=== PATIENT | male | born 1975 | race Caucasian/White ===

== ENCOUNTER 2017-04-22 10:07 | Emergency (ER) | payer OTHER, MEDICAID ==
[~2017-04-22] VITALS: Ht 170.2 cm; Wt 117.9 kg
[2017-04-22 10:07] VITALS: BP_SYST 126
[~2017-04-22 10:07] MED LIST: METF-305 PO
[2017-04-22] MEDS ORDERED: BACITRACIN 1 GM OINT TP ONE (10:45)
[2017-04-22] MEDS ORDERED: LIDOCAINE 1% 10 MG/ML, 20 ML MDV IJ ONE (10:45)
[2017-04-22 11:08] LABS: BASOPHILS # (AUTO) 0.1 K/uL (0.0-0.2); BASOPHILS % (AUTO) 0.7 % (0.0-2.0); EOSINOPHILS # (AUTO) 0.4 K/uL (0.0-0.4); EOSINOPHILS % (AUTO) 3.5 % (0.0-4.0); HEMATOCRIT 48.1 % (36-54); HEMOGLOBIN 15.9 g/dL (14.0-18.0); LYMPHOCYTES # (AUTO) 2.8 K/uL (1.0-5.5); LYMPHOCYTES % (AUTO) 24.2 % (20.5-51.5); MEAN CORPUSCULAR HEMOGLOBIN 31 pg (27-31); MEAN CORPUSCULAR HGB CONC 33 % (32-36); MEAN CORPUSCULAR VOLUME 93 fL (79.0-98.0); MONOCYTES # (AUTO) 0.7 K/uL (0.0-1.0); MONOCYTES % (AUTO) 6.1 % (1.7-9.3); NEUTROPHILS # (AUTO) 7.6 K/uL (1.8-7.7); NEUTROPHILS % (AUTO) 65.5 % (40.0-70.0); PLATELET COUNT (AUTO) 224 K/uL (130-430); RED BLOOD CELL COUNT(AUTO) 5.18 MIL/uL (4.2-6.2); RED CELL DISTRIBUTION WIDTH 11.8 % (9.0-15.0); WHITE BLOOD COUNT (AUTO) 11.6 K/uL (4.8-10.8)
[2017-04-22 11:24] LABS: CALCIUM 9.2 mg/dL (8.4-11.0); CREATININE 0.77 mg/dL (0.55-1.30); POTASSIUM 4.3 mmol/L (3.5-5.1)
[2017-04-22 11:29] LABS: ALBUMIN 3.1 g/dL (3.4-4.8); INR 1.1 (0.80-1.20); PROTHROMBIN TIME 11.6 SECS (9.5-12.5); TOTAL BILIRUBIN 0.6 mg/dL (0.0-1.0)
[2017-04-22] MEDS ORDERED: KETOROLAC TROMETHAMINE 60 MG/2 ML VIAL IM ONE (11:30)
[2017-04-22] MEDS ORDERED: HYDROcodone/ACETAMIN 10-325 MG TAB PO ONE (11:45)
[2017-04-22 12:24] VITALS: BP_SYST 137
== END 2017-04-22 12:25 | disposition home or self-care (01) ==
LOC: SED 10:07
DX: L02.31 Cutaneous abscess of buttock (principal); E11.9 Type 2 diabetes mellitus without complications; K21.9 Gastro-esophageal reflux disease without esophagitis
CPT/HCPCS: 10060; 36415; 80053; 85025; 85610; 85730; 96372; 99284; J1885; J2001

== ENCOUNTER 2017-04-23 06:17 | Emergency (ER) | payer OTHER, MEDICAID ==
[~2017-04-23] VITALS: Ht 170.2 cm; Wt 117.9 kg
[2017-04-23 06:25] VITALS: BP_SYST 140
[2017-04-23] MEDS ORDERED: KETOROLAC TROMETHAMINE 60 MG/2 ML VIAL IM ONE (06:45)
[2017-04-23] MEDS ORDERED: CLINDAMYCIN HCL 150 MG CAPSULE PO ONE (06:45)
[2017-04-23] MEDS ORDERED: MORPHINE 2 MG/ML INJ. SYRINGE IM ONE (07:30)
[2017-04-23] MEDS ORDERED: ONDANSETRON 4 MG ODT TAB PO ONE (07:30)
[2017-04-23 08:15] VITALS: BP_SYST 128
== END 2017-04-23 08:15 | disposition home or self-care (01) ==
LOC: SED 06:17
DX: S76.011A Strain of muscle, fascia and tendon of right hip, initial encounter (principal); K04.7 Periapical abscess without sinus; L02.31 Cutaneous abscess of buttock; R03.0 Elevated blood-pressure reading, without diagnosis of hypertension; E11.9 Type 2 diabetes mellitus without complications; K21.9 Gastro-esophageal reflux disease without esophagitis; X58.XXXA Exposure to other specified factors, initial encounter; Y93.89 Activity, other specified; Y92.89 Other specified places as the place of occurrence of the external cause; Y99.8 Other external cause status
CPT/HCPCS: 73502; 82962; 96372; 99284; J1885; J2270; Q0162

== ENCOUNTER 2017-07-26 06:03 | Emergency (ER) | payer OTHER, MEDICAID ==
[~2017-07-26] VITALS: Ht 170.2 cm; Wt 117.9 kg
[2017-07-26 06:03] VITALS: BP_SYST 118
--- NOTE | 2017-07-26 06:03 | NUR ---
Placed in room 06 . Placed on compliance monitor, blood pressure machine and pulse oximeter. To gown for exam. Side rails up. Report given to HEYDI Stahl.
--- NOTE | 2017-07-26 06:05 | NUR ---
Patient AOx4, ambulatory, presents to ER with complaint of 9/10 non-radiating chest pain x1 day and flu-like symptoms. Patient states hx of DM. No other symptoms or complaints at this time.
--- NOTE | 2017-07-26 06:08 | NUR ---
ER MD Contreras at bedside for medical evaluation.
[2017-07-26] MEDS ORDERED: MORPHINE 2 MG/ML INJ. SYRINGE IVP ONE (06:15)
[2017-07-26] MEDS ORDERED: ASPIRIN 81 MG TAB.CHEW PO ONE (06:15)
[2017-07-26] MEDS ORDERED: NACL 0.9% 1,000 ML IV ONE (06:15)
--- NOTE | 2017-07-26 06:20 | NUR ---
# 20 gauge angiocath placed to L forearm, placed by HEYDI Stahl. Use of asceptic technique. Opsite placed over site. Two patient identifiers used. Blood return noted. Blood for lab drawn from site. Flushed with 10 cc of normal saline. No evidence of infiltration noted. Patient tolerated well.
[2017-07-26] MEDS ORDERED: METF-303 PO (06:22)
[2017-07-26 07:16] LABS: BASOPHILS # (AUTO) 0.1 K/uL (0.0-0.2); BASOPHILS % (AUTO) 0.9 % (0.0-2.0); EOSINOPHILS # (AUTO) 0.1 K/uL (0.0-0.4); EOSINOPHILS % (AUTO) 1.4 % (0.0-4.0); HEMATOCRIT 46.5 % (36-54); HEMOGLOBIN 15.4 g/dL (14.0-18.0); LYMPHOCYTES # (AUTO) 1.3 K/uL (1.0-5.5); LYMPHOCYTES % (AUTO) 16.8 % (20.5-51.5); MEAN CORPUSCULAR HEMOGLOBIN 31 pg (27-31); MEAN CORPUSCULAR HGB CONC 33 % (32-36); MEAN CORPUSCULAR VOLUME 93 fL (79.0-98.0); MONOCYTES # (AUTO) 0.8 K/uL (0.0-1.0); MONOCYTES % (AUTO) 9.6 % (1.7-9.3); NEUTROPHILS # (AUTO) 5.6 K/uL (1.8-7.7); NEUTROPHILS % (AUTO) 71.3 % (40.0-70.0); PLATELET COUNT (AUTO) 204 K/uL (130-430); RED BLOOD CELL COUNT(AUTO) 5.02 MIL/uL (4.2-6.2); RED CELL DISTRIBUTION WIDTH 12.6 % (9.0-15.0); WHITE BLOOD COUNT (AUTO) 7.9 K/uL (4.8-10.8)
[2017-07-26 07:34] LABS: CALCIUM 8.9 mg/dL (8.4-11.0); CREATININE 0.64 mg/dL (0.55-1.30); POTASSIUM 3.5 mmol/L (3.5-5.1)
[2017-07-26 07:39] LABS: ALBUMIN 3.5 g/dL (3.4-4.8); TOTAL BILIRUBIN 0.6 mg/dL (0.0-1.0)
[2017-07-26 07:40] VITALS: BP_SYST 133
--- NOTE | 2017-07-26 07:40 | NUR ---
Patient given written and verbal discharge instructions and verbalizes understanding. ER MD discussed with patient the results and treatment provided. Patient in stable condition. ID arm band removed. IV catheter removed intact and dressing applied, no active bleeding. Rx of PROMETHAZINE/DEXTROMETHORPHAN, TAMIFLU, TORADOL given. Patient educated on pain management and to follow up with PMD. Pain Scale 2/10. Opportunity for questions provided and answered.
== END 2017-07-26 07:40 | disposition home or self-care (01) ==
LOC: SED 06:03
DX: J09.X2 Influenza due to identified novel influenza A virus with other respiratory manifestations (principal); E11.9 Type 2 diabetes mellitus without complications; K21.9 Gastro-esophageal reflux disease without esophagitis
CPT/HCPCS: 36415; 71045; 80053; 85025; 86710; 93005; 96361; 96374; 99285; J2270; J7030

== ENCOUNTER 2018-12-16 09:12 | Inpatient (IN) | payer OTHER, MEDICAID ==
[~2018-12-16] VITALS: Ht 167.6 cm; Wt 111.6 kg
[2018-12-16 09:12] VITALS: BP_SYST 139
[~2018-12-16 09:12] MED LIST changes: -METF-305 PO; +METF-379 PO
[2018-12-16] MEDS ORDERED: ASPIRIN 81 MG TAB.CHEW PO ONE (09:30)
[2018-12-16] MEDS ORDERED: ASPIRIN 81 MG TAB.CHEW ONE (09:33)
[2018-12-16 09:50] LABS: BASOPHILS # (AUTO) 0.1 K/uL (0.0-0.2); BASOPHILS % (AUTO) 1.1 % (0.0-2.0); EOSINOPHILS # (AUTO) 0.4 K/uL (0.0-0.4); EOSINOPHILS % (AUTO) 3.7 % (0.0-4.0); HEMATOCRIT 48.7 % (36-54); HEMOGLOBIN 16.5 g/dL (14.0-18.0); LYMPHOCYTES # (AUTO) 3.7 K/uL (1.0-5.5); LYMPHOCYTES % (AUTO) 38.5 % (20.5-51.5); MEAN CORPUSCULAR HEMOGLOBIN 31 pg (27-31); MEAN CORPUSCULAR HGB CONC 34 % (32-36); MEAN CORPUSCULAR VOLUME 93 fL (79.0-98.0); MONOCYTES # (AUTO) 0.5 K/uL (0.0-1.0); MONOCYTES % (AUTO) 5.7 % (1.7-9.3); NEUTROPHILS # (AUTO) 4.8 K/uL (1.8-7.7); PLATELET COUNT (AUTO) 216 K/uL (130-430); RED BLOOD CELL COUNT(AUTO) 5.25 MIL/uL (4.2-6.2); RED CELL DISTRIBUTION WIDTH 13.4 % (9.0-15.0); WHITE BLOOD COUNT (AUTO) 9.5 K/uL (4.8-10.8)
[2018-12-16 09:58] LABS: CALCIUM 9.1 mg/dL (8.4-11.0); CREATININE 0.62 mg/dL (0.55-1.30); POTASSIUM 3.9 mmol/L (3.5-5.1)
[2018-12-16 10:03] LABS: ALBUMIN 3.4 g/dL (3.4-4.8); TOTAL BILIRUBIN 0.3 mg/dL (0.0-1.0)
[2018-12-16 11:32] VITALS: BP_SYST 124
[2018-12-16] MEDS ORDERED: DEXTROSE 50% JECT 50 ML DISP.SYRIN IVP PRN (12:45)
[2018-12-16] MEDS: INSULIN REGULAR, HUMAN 100 UNITS/ML, 10 ML VIAL (humuLIN R) SUBCUT PRN ×3 (13:10→23:13)
[2018-12-16 16:05] VITALS: BP_SYST 120
[2018-12-16 21:19] VITALS: BP_SYST 121
[2018-12-17 01:19] VITALS: BP_SYST 93
[2018-12-17] MEDS: INSULIN REGULAR, HUMAN 100 UNITS/ML, 10 ML VIAL (humuLIN R) SUBCUT PRN (05:03)
[2018-12-17 07:45] VITALS: BP_SYST 111
[2018-12-17 08:23] LABS: CHOLESTEROL 164 mg/dL (<200); HDL CHOLESTEROL 27 mg/dL (>45); LDL CHOLESTEROL 109 mg/dL (<100); TRIGLYCERIDES 231 mg/dL (30-150)
[2018-12-17] MEDS ORDERED: metFORMIN HCL 500 MG TABLET PO ONE (09:45)
[2018-12-17] MEDS ORDERED: LISINOPRIL 5 MG TABLET PO ONE (09:45)
[2018-12-17] MEDS ORDERED: ATORVASTATIN 10 MG TABLET PO ONE (09:45)
[2018-12-17] MEDS ORDERED: ASPIRIN 325 MG TABLET (ECOTRIN) PO ONE (09:45)
[2018-12-17] MEDS ORDERED: metFORMIN HCL 500 MG TABLET PO SCH (18:00)
[2018-12-18] MEDS ORDERED: LISINOPRIL 5 MG TABLET PO SCH (09:00)
[2018-12-18] MEDS ORDERED: ATORVASTATIN 10 MG TABLET PO SCH (09:00)
[2018-12-18] MEDS ORDERED: ASPIRIN 325 MG TABLET (ECOTRIN) PO SCH (09:00)
== END 2018-12-17 10:18 | disposition left against medical advice (07) | DRG 313 ==
LOC: SED 09:12 → MERGE 10:58 → STU 10:58
PROVIDERS: ADMIT Internal Medicine Hospice and Palliative Medicine; ATTEND Internal Medicine Hospice and Palliative Medicine
DX: R07.89 Other chest pain (principal); E11.9 Type 2 diabetes mellitus without complications; E66.01 Morbid (severe) obesity due to excess calories; F17.210 Nicotine dependence, cigarettes, uncomplicated; F32.9 Major depressive disorder, single episode, unspecified; Z68.39 Body mass index [BMI] 39.0-39.9, adult; Z90.49 Acquired absence of other specified parts of digestive tract
CPT/HCPCS: 36415; 71045; 80053; 80061; 82550-TC; 82962; 83036; 84484; 85025; 85610-TC; 85730-TC; 93005; 93306; 99285; G0378; J1815

== ENCOUNTER 2019-01-11 19:04 | Emergency (ER) | payer OTHER, MEDICAID ==
[~2019-01-11] VITALS: Ht 170.2 cm; Wt 108.9 kg
[2019-01-11 19:19] VITALS: BP_SYST 115
--- NOTE | 2019-01-11 19:21 | NUR ---
sent to no bed in ED
--- NOTE | 2019-01-11 19:40 | NUR ---
Pt C/O RT eye irratation after drilling under his car. Pt states debris fell into his eye and he immediately flushed his eye with copious amounts of water with minimal relief. Report the pain is intermittent. Visual acuity test is complete. Denies any other symptoms at this time. Will continue to monitor.
--- NOTE | 2019-01-11 20:43 | NUR ---
ER Dr. Irving at bedside examining patient.
--- NOTE | 2019-01-11 22:30 | NUR ---
Dr. Irving at bedside performing eye exam
--- NOTE | 2019-01-11 22:40 | NUR ---
Dr. Irving placed Ryan Lens on patient's RT eye and attached 250ml NS to be ran 500ml/hr. Patient tolerating well, will continue to monitor.
[2019-01-11] MEDS ORDERED: POLYMYXIN B/TRIMETHOPRIM EYE DROPS 10 mL OP ONE (23:30)
[2019-01-11 23:34] VITALS: BP_SYST 115
--- NOTE | 2019-01-11 23:34 | NUR ---
Patient given written and verbal discharge instructions and verbalizes understanding. ER MD discussed with patient the results and treatment provided. Patient in stable condition. ID arm band removed. Rx of Polytrim given. Patient educated on pain management and to follow up with PMD. Pain Scale 0. Opportunity for questions provided and answered. Medication side effect fact sheet provided.
== END 2019-01-11 23:34 | disposition home or self-care (01) ==
LOC: SED 19:04
DX: T15.11XA Foreign body in conjunctival sac, right eye, initial encounter (principal); H00.011 Hordeolum externum right upper eyelid; E11.9 Type 2 diabetes mellitus without complications; K21.9 Gastro-esophageal reflux disease without esophagitis; Z79.84 Long term (current) use of oral hypoglycemic drugs; X58.XXXA Exposure to other specified factors, initial encounter; Y93.89 Activity, other specified; Y92.89 Other specified places as the place of occurrence of the external cause; Y99.8 Other external cause status
CPT/HCPCS: 99283

== ENCOUNTER 2019-03-21 08:26 | Emergency (ER) | payer OTHER ==
[~2019-03-21] VITALS: Ht 170.2 cm; Wt 104.3 kg
[2019-03-21 08:31] VITALS: BP_SYST 147
[2019-03-21] MEDS: KETOROLAC TROMETHAMINE 60 MG/2 ML VIAL IM ONE (08:59)
[2019-03-21] MEDS: HYDROcodone/ACETAMIN 5-325 MG TAB (NORCO/ VICODIN) PO ONE (09:53)
[2019-03-21 10:11] VITALS: BP_SYST 138
== END 2019-03-21 10:11 | disposition home or self-care (01) ==
LOC: SED 08:26
DX: S46.812A Strain of other muscles, fascia and tendons at shoulder and upper arm level, left arm, initial encounter (principal); S09.93XA Unspecified injury of face, initial encounter; E11.9 Type 2 diabetes mellitus without complications; K21.9 Gastro-esophageal reflux disease without esophagitis; W19.XXXA Unspecified fall, initial encounter; Y93.89 Activity, other specified; Y92.89 Other specified places as the place of occurrence of the external cause; Y99.8 Other external cause status
CPT/HCPCS: 71045; 71100; 73080; 96372; 99283; J1885

== ENCOUNTER 2020-10-19 08:10 | Emergency (ER) | payer OTHER ==
[~2020-10-19] VITALS: Ht 170.2 cm; Wt 109.3 kg
[2020-10-19 08:18] VITALS: BP_SYST 143
[2020-10-19] MEDS ORDERED: TRAM50TA PO (08:35)
[2020-10-19] MEDS ORDERED: SOM350 PO (08:35)
[2020-10-19] MEDS ORDERED: NAPR-688 PO (08:35)
[2020-10-19] MEDS ORDERED: KETOROLAC TROMETHAMINE 60 MG/2 ML VIAL IM ONE (08:45)
[2020-10-19 09:25] VITALS: BP_SYST 141
== END 2020-10-19 09:25 | disposition home or self-care (01) ==
LOC: SED 08:10
DX: S39.012A Strain of muscle, fascia and tendon of lower back, initial encounter (principal); E11.9 Type 2 diabetes mellitus without complications; K21.9 Gastro-esophageal reflux disease without esophagitis; Z79.899 Other long term (current) drug therapy; X50.0XXA Overexertion from strenuous movement or load, initial encounter; Y93.89 Activity, other specified; Y92.89 Other specified places as the place of occurrence of the external cause; Y99.8 Other external cause status
CPT/HCPCS: 96372; 99283; J1885

== ENCOUNTER 2020-11-21 06:44 | Emergency (ER) | payer OTHER ==
[~2020-11-21] VITALS: Ht 170.2 cm; Wt 108.9 kg
[~2020-11-21 06:44] MED LIST changes: +NAPR-688 PO; +SOM350 PO; +TRAM50TA PO
[2020-11-21 06:55] VITALS: BP_SYST 128
[2020-11-21 08:04] LABS: BASOPHILS # (AUTO) 0.1 K/uL (0.0-0.2); BASOPHILS % (AUTO) 1.1 % (0.0-2.0); EOSINOPHILS # (AUTO) 0.4 K/uL (0.0-0.4); EOSINOPHILS % (AUTO) 4.4 % (0.0-4.0); HEMATOCRIT 42.7 % (36-54); HEMOGLOBIN 14.3 g/dL (14.0-18.0); LYMPHOCYTES # (AUTO) 3.1 K/uL (1.0-5.5); LYMPHOCYTES % (AUTO) 34.2 % (20.5-51.5); MEAN CORPUSCULAR HEMOGLOBIN 31 pg (27-31); MEAN CORPUSCULAR HGB CONC 34 % (32-36); MEAN CORPUSCULAR VOLUME 93 fL (79.0-98.0); MONOCYTES # (AUTO) 0.5 K/uL (0.0-1.0); MONOCYTES % (AUTO) 5.8 % (1.7-9.3); NEUTROPHILS % (AUTO) 54.5 % (40.0-70.0); PLATELET COUNT (AUTO) 222 K/uL (130-430); RED BLOOD CELL COUNT(AUTO) 4.58 MIL/uL (4.2-6.2); RED CELL DISTRIBUTION WIDTH 13.3 % (9.0-15.0); WHITE BLOOD COUNT (AUTO) 9.2 K/uL (4.8-10.8)
[2020-11-21 08:12] LABS: CALCIUM 8.6 mg/dL (8.4-11.0); CREATININE 0.64 mg/dL (0.55-1.30); POTASSIUM 3.7 mmol/L (3.5-5.1)
[2020-11-21 08:13] LABS: C-REACTIVE PROTEIN QUANT 0.9 mg/dL (0-0.5)
[2020-11-21 08:18] LABS: ALBUMIN 3.1 g/dL (3.4-4.8); TOTAL BILIRUBIN 0.3 mg/dL (0.0-1.0)
[2020-11-21 08:19] LABS: INR 1.1 (0.80-1.20); PROTHROMBIN TIME 10.8 SECS (9.5-12.5)
[2020-11-21 08:28] LABS: BILIRUBIN,URINE NEGATIVE (NEGATIVE); BLOOD, URINE NEGATIVE (NEGATIVE); CLARITY/URINE CLEAR (CLEAR); COLOR,URINE YELLOW (YELLOW); GLUCOSE,URINE 2+ (NEGATIVE); KETONES,URINE NEGATIVE (NEGATIVE); LEUKOCYTE ESTERASE ,URINE NEGATIVE (NEGATIVE); NITRITE, URINE NEGATIVE (NEGATIVE); PH,URINE 6.5 (5.0-8.0); PROTEIN URINE NEGATIVE (NEGATIVE); UROBILINOGEN,URINE 0.2 (0.2-1.0)
[2020-11-21] MEDS ORDERED: IBUP-1971 PO (08:52)
[2020-11-21] MEDS ORDERED: HYDR-3917 PO (08:52)
[2020-11-21 09:15] VITALS: BP_SYST 128
== END 2020-11-21 09:16 | disposition home or self-care (01) ==
LOC: SED 06:44
DX: R10.9 Unspecified abdominal pain (principal); K21.9 Gastro-esophageal reflux disease without esophagitis; E11.9 Type 2 diabetes mellitus without complications; Z79.899 Other long term (current) drug therapy
CPT/HCPCS: 36415; 76376; 80053; 81003; 82150; 83690; 85025; 85610-TC; 85730-TC; 86140; 99284

== ENCOUNTER 2021-03-11 05:09 | Emergency (ER) | payer OTHER, SELFPAY ==
[~2021-03-11] VITALS: Ht 170.2 cm; Wt 90.7 kg
[~2021-03-11 05:09] MED LIST changes: +HYDR-3917 PO; +IBUP-1971 PO
[2021-03-11 05:15] VITALS: BP_SYST 142
--- NOTE | 2021-03-11 05:15 | NUR ---
Placed in room 6 . Placed on controller instructor, blood pressure machine and pulse oximeter. To gown for exam. Side rails up. Report given to SD SOLIZ.
--- NOTE | 2021-03-11 05:19 | NUR ---
EKG performed at by SD SOLIZ. Physician given copy of EKG for review.
--- NOTE | 2021-03-11 05:30 | NUR ---
PATIENT AAOX4 AND AMBULATORY FROM HOME C/O CHEST PAIN AND LEFT ARM NUMBNESS X 1 HR [employer]. PER PATIENT HE WAS SLEEPING AND GOT WOKEN UP DUE TO THE PAIN. VSS. CURRENTLY STATING HAVING NO CHEST PAIN STATES IT COMES AND GOES. HX OF HEART ATTACK IN 2019. +NAUSEA. - VOMITING/DIARRHEA.
--- NOTE | 2021-03-11 05:40 | NUR ---
DR. MACIAS AT BEDSIDE FOR EVALUATION.
[2021-03-11] MEDS ORDERED: NITROGLYCERIN 0.4 MG TAB.SUBL SL ONE (05:45)
[2021-03-11] MEDS ORDERED: ASPIRIN 81 MG TAB.CHEW PO ONE (05:45)
--- NOTE | 2021-03-11 05:50 | NUR ---
# 20 gauge angiocath placed to RIGHT AC. Use of asceptic technique. Opsite placed over site. Blood return noted. Blood for lab drawn from site. Flushed with 10 cc of normal saline. No evidence of infiltration noted. Patient tolerated well.
--- NOTE | 2021-03-11 05:53 | NUR ---
MEDICATION ADMINISTERED ORDERED.
[2021-03-11 06:13] LABS: BASOPHILS # (AUTO) 0.1 K/uL (0.0-0.2); BASOPHILS % (AUTO) 1.3 % (0.0-2.0); EOSINOPHILS # (AUTO) 0.4 K/uL (0.0-0.4); EOSINOPHILS % (AUTO) 4.8 % (0.0-4.0); HEMATOCRIT 43.6 % (36-54); HEMOGLOBIN 14.9 g/dL (14.0-18.0); LYMPHOCYTES # (AUTO) 2.5 K/uL (1.0-5.5); LYMPHOCYTES % (AUTO) 27.1 % (20.5-51.5); MEAN CORPUSCULAR HEMOGLOBIN 33 pg (27-31); MEAN CORPUSCULAR HGB CONC 34 % (32-36); MEAN CORPUSCULAR VOLUME 95 fL (79.0-98.0); MONOCYTES # (AUTO) 0.6 K/uL (0.0-1.0); MONOCYTES % (AUTO) 6.9 % (1.7-9.3); NEUTROPHILS # (AUTO) 5.4 K/uL (1.8-7.7); NEUTROPHILS % (AUTO) 59.9 % (40.0-70.0); PLATELET COUNT (AUTO) 185 K/uL (130-430); RED BLOOD CELL COUNT(AUTO) 4.59 MIL/uL (4.2-6.2); RED CELL DISTRIBUTION WIDTH 12.8 % (9.0-15.0); WHITE BLOOD COUNT (AUTO) 9.1 K/uL (4.8-10.8)
[2021-03-11 06:19] LABS: CALCIUM 8.6 mg/dL (8.4-11.0); CREATININE 0.76 mg/dL (0.55-1.30); POTASSIUM 3.9 mmol/L (3.5-5.1)
[2021-03-11 06:23] LABS: INR 1.1 (0.80-1.20); PROTHROMBIN TIME 11.2 SECS (9.5-12.5)
[2021-03-11 06:24] LABS: ALBUMIN 3.1 g/dL (3.4-4.8); TOTAL BILIRUBIN 0.3 mg/dL (0.0-1.0)
[2021-03-11] MEDS ORDERED: DULA1.5P SQ (06:51)
[2021-03-11] MEDS ORDERED: ROSU10TA29 PO (06:51)
[2021-03-11] MEDS ORDERED: OMEP20TA20 PO (06:51)
[2021-03-11] MEDS ORDERED: LOSA50TA28 PO (06:51)
--- NOTE | 2021-03-11 06:51 | NUR ---
Medication reconciliation completed with information provided by MED LIST. Any prior medication reconciliation on file was reviewed and corrected.
--- NOTE | 2021-03-11 07:13 | NUR ---
REPORT GIVEN TO HEYDI VALENZUELA.
--- NOTE | 2021-03-11 07:15 | NUR ---
Pt resting in bed no signs of distress noted. Requesting to leave at this time.
--- NOTE | 2021-03-11 07:41 | NUR ---
Patient does not wish to proceed with medical care recommended by [facility]. Patient given information related to possible complications, up to and including , which could occur as a result of leaving hospital at this time. Patient verbalizes understanding of risks involved leaving against medical advice. Patient has signed AMA form.
[2021-03-11 07:43] VITALS: BP_SYST 116
== END 2021-03-11 07:41 | disposition left against medical advice (07) ==
LOC: SED 05:09
DX: R07.89 Other chest pain (principal); E11.9 Type 2 diabetes mellitus without complications; K21.9 Gastro-esophageal reflux disease without esophagitis; Z79.899 Other long term (current) drug therapy
CPT/HCPCS: 36415; 71045; 80053; 83880; 84484; 85025; 85610-TC; 85730-TC; 93005; 99285